=== PATIENT | female | born 1995 | race Caucasian/White ===

== ENCOUNTER 2020-12-21 19:34 | Emergency (ER) | payer OTHER ==
[~2020-12-21] VITALS: Ht 160 cm; Wt 90.9 kg
[2020-12-21 19:41] VITALS: BP 146/93
[2020-12-22] MEDS ORDERED: TETanus/Pertussis (Acell)/Diphther VAC/PF (Tdap-Adult) 0.5ml syringe IMVAC ONE (00:30)
[2020-12-22] MEDS ORDERED: HYDR-3965 PO ×2 (00:36→00:47)
[2020-12-25] MEDS ORDERED: HYDR-3965 PO (19:20)
== END 2020-12-22 01:03 | disposition home or self-care (01) ==
LOC: ER 19:35
DX: S81.811A Laceration without foreign body, right lower leg, initial encounter (principal); Z88.8 Allergy status to other drugs, medicaments and biological substances; Z79.899 Other long term (current) drug therapy; V86.95XA Unspecified occupant of 3- or 4- wheeled all-terrain vehicle (ATV) injured in nontraffic accident, initial encounter; Y93.89 Activity, other specified; Y92.89 Other specified places as the place of occurrence of the external cause; Y99.8 Other external cause status
CPT/HCPCS: 12001; 73610; 73630; 90471; 90715; 99284